=== PATIENT | male | born 1995 | race Two or more races ===

== ENCOUNTER 2024-12-04 16:25 | Emergency (ER) | payer OTHER ==
[~2024-12-04] VITALS: Ht 162.6 cm; Wt 121.6 kg
[2024-12-04] MEDS ORDERED: 0.9 % SODIUM CHLORIDE 500 ML IV ONE (18:00)
[2024-12-04] MEDS ORDERED: FAMOTIDINE/PF 20 MG/2 ML VIAL IV ONE (18:00)
[2024-12-04] MEDS ORDERED: ONDANSETRON HCL 2 MG/ML VIAL IV ONE (18:00)
[2024-12-04] MEDS ORDERED: KETOROLAC TROMETHAMINE 30 MG VIAL IV ONE ×2 (18:00→22:15)
[2024-12-04] MEDS ORDERED: ONDANSETRON HCL 2 MG/ML VIAL ONE (18:09)
[2024-12-04] MEDS ORDERED: FAMOTIDINE/PF 20 MG/2 ML VIAL ONE (18:09)
[2024-12-04] MEDS ORDERED: KETOROLAC TROMETHAMINE 30 MG VIAL ONE (18:09)
[2024-12-04 18:51] LABS: URINE APPEARANCE Turbid; URINE BILIRRUBIN Small (NEGATIVE); URINE BLOOD Large; URINE COLOR Orange; URINE GLUCOSE Negative (NEGATIVE); URINE KETONE Negative (NEGATIVE); URINE LEUKOCYTE Small; URINE NITRATE Negative; URINE UROBILINOGEN 1.0 E.U./dl
[2024-12-04 18:53] LABS: URINE BACTERIA 127.1 uL (0.0-1933); URINE CAST 1.46 uL (0.0-1.40); URINE EPITHELIAL CELLS 9.6 uL (0.0-38.8); URINE RBC 3471.8 uL (0.0-20.8); URINE WBC 39.2 uL (0.0-23.2)
[2024-12-04 18:56] LABS: URINE PROTEIN 100 (NEGATIVE)
[2024-12-04 19:01] LABS: BASO % 0.9 % (0.1-1.2); EOS # 0.17 (0.04-0.54); EOS % 1.9 % (0.7-7.0); LYMPH # 1.93 (1.18-3.74); LYMPH % 21.2 % (19.3-53.1); MEAN PLATELET VOLUME 9.90 fl (9.4-12.4); MONO # 0.50 (0.24-0.82); MONO % 5.5 % (4.7-12.5); NEUT # 6.36 (1.56-6.13); NEUT % 69.9 % (34.0-71.1); RED CELL DISTRIBUTION WIDTH 12.9 % (11.6-14.4)
[2024-12-04 19:26] LABS: ALT/SGPT 41.0 U/L (12-78); AST/SGOT 22.0 U/L (15-37); BILIRUBIN TOTAL 0.78 mg/dL (0.3-1.2); BUN CREA RATIO 10.0 (7.0-25.0); CREATININE SERUM 0.97 mg/dL (0.70-1.30); GFR 91.5; GLOBULINA 3.9 G/DL (2.4-3.5); GLUCOSE FASTING 145.0 mg/dL (65-100); OSMOLALITY SERUM 281.0 MOSM/KG (275-295)
[2024-12-04] MEDS ORDERED: TAMS0.4C PO (22:12)
[2024-12-04] MEDS ORDERED: DUI500 PO (22:12)
[2024-12-04] MEDS ORDERED: DICLOFENAC SODI50 MG PO (22:12)
[2024-12-04] MEDS ORDERED: TAMSULOSIN HCL 0.4 MG CAP PO ONE (22:15)
[2024-12-04] MEDS ORDERED: CEFTRIAXONE SODIUM 1,000 MG VIAL IV ONE (22:15)
== END 2024-12-05 01:16 ==
LOC: ER 16:26
PROVIDERS: General Practice
DX: N21.0 Calculus in bladder (principal); R10.A2 Flank pain, left side; R10.9 Unspecified abdominal pain